=== PATIENT | female | born 1955 | race Caucasian/White ===

== ENCOUNTER 2018-07-12 10:42 | Emergency (ER) | payer OTHER ==
[~2018-07-12] VITALS: Ht 154.9 cm; Wt 68.0 kg
[~2018-07-12 10:42] MED LIST: ASPI81CH; CEPH500 PO; CYCL10 PO; Chantix0.5 MG PO; Coq-10100 MG; ERGO400 PO; HYDACE5 PO; HYDCHL12.5; LISI20 PO; LORA1 PO; METPRE4DP PO; NEOCOLOTSU OT; Naprosyn500 MG PO; Norco 5-325 Ta1 EACH PO; Prinivil10 MG PO; TIOT18; UBID100 PO; [UNRECOGNIZED DRUG - OTHER]
== END 2018-07-12 11:11 | disposition home or self-care (01) ==
LOC: ER 10:42
DX: R09.1 Pleurisy (principal); I10 Essential (primary) hypertension; J44.9 Chronic obstructive pulmonary disease, unspecified; E78.5 Hyperlipidemia, unspecified; Z87.891 Personal history of nicotine dependence; Z79.899 Other long term (current) drug therapy
CPT/HCPCS: 99283

== ENCOUNTER → 2019-06-22 | Outpatient (CLI) | payer OTHER | LOC: LAB SHORT 12:00 → LAB 12:00 → LAB FUT 05-23 14:35 | DX: R10.13 Epigastric pain (principal) | CPT/HCPCS: 87338 ==

== ENCOUNTER → 2019-09-03 | Outpatient (CLI) | payer OTHER ==
[2019-09-06 14:28] LABS: Stool Occult Bld Immuno 1 Negative (NEGATIVE)
== END ==
LOC: LAB SHORT 07:15 → LAB 07:15
PROVIDERS: Nurse Practitioner Family
DX: Z12.11 Encounter for screening for malignant neoplasm of colon (principal)
CPT/HCPCS: G0328

== ENCOUNTER → 2019-12-26 | Outpatient (CLI) | payer OTHER ==
[2019-12-28 15:09] LABS: HPV 16 Negative (Negative); HPV 18 Negative (Negative); HPV OTHER HR TYPES Negative (Negative)
== END | disposition home or self-care (01) ==
LOC: LAB SHORT 14:30 → LAB 14:30
PROVIDERS: Obstetrics & Gynecology
DX: Z01.419 Encounter for gynecological examination (general) (routine) without abnormal findings (principal)
CPT/HCPCS: 87624; G0123

== ENCOUNTER 2021-08-13 14:06 | Emergency (ER) | payer OTHER ==
[~2021-08-13] VITALS: Ht 154.9 cm; Wt 67.1 kg
== END 2021-08-13 14:45 | disposition home or self-care (01) ==
LOC: ER 14:06
DX: S01.01XA Laceration without foreign body of scalp, initial encounter (principal); Z23 Encounter for immunization; I10 Essential (primary) hypertension; J44.9 Chronic obstructive pulmonary disease, unspecified; E78.00 Pure hypercholesterolemia, unspecified; Z79.899 Other long term (current) drug therapy; Z87.891 Personal history of nicotine dependence; W22.8XXA Striking against or struck by other objects, initial encounter
CPT/HCPCS: 90471; 90714; 99283-25

== ENCOUNTER 2021-09-28 10:01 | Day surgery (SDC) | payer OTHER ==
[~2021-09-28] VITALS: Ht 154.9 cm; Wt 67.9 kg
== END 2021-09-28 13:05 | disposition home or self-care (01) ==
LOC: ORSCSDS 10:01
PROVIDERS: Student in an Organized Health Care Education/Training Program
PROC: 0DBK8ZX Excision of Ascending Colon, Via Natural or Artificial Opening Endoscopic, Diagnostic (ICD-10-PCS; principal; 2021-09-28 12:00)
PROC: 0DB78ZX Excision of Stomach, Pylorus, Via Natural or Artificial Opening Endoscopic, Diagnostic (ICD-10-PCS; principal; 2021-09-28 12:00)
PROC: 0DBH8ZX Excision of Cecum, Via Natural or Artificial Opening Endoscopic, Diagnostic (ICD-10-PCS; principal; 2021-09-28 12:00)
PROC: 0DB98ZX Excision of Duodenum, Via Natural or Artificial Opening Endoscopic, Diagnostic (ICD-10-PCS; principal; 2021-09-28 12:00)
PROC: 0DB48ZX Excision of Esophagogastric Junction, Via Natural or Artificial Opening Endoscopic, Diagnostic (ICD-10-PCS; principal; 2021-09-28 12:00)
DX: R10.13 Epigastric pain (principal); K57.32 Diverticulitis of large intestine without perforation or abscess without bleeding; K31.7 Polyp of stomach and duodenum; D12.2 Benign neoplasm of ascending colon; D12.0 Benign neoplasm of cecum; K44.9 Diaphragmatic hernia without obstruction or gangrene; K20.90 Esophagitis, unspecified without bleeding; K29.70 Gastritis, unspecified, without bleeding; I10 Essential (primary) hypertension; E78.5 Hyperlipidemia, unspecified; J44.9 Chronic obstructive pulmonary disease, unspecified; I25.10 Atherosclerotic heart disease of native coronary artery without angina pectoris; Z79.899 Other long term (current) drug therapy
CPT/HCPCS: 88305; 88342; J2704; J7120

== ENCOUNTER 2022-08-24 10:53 | Emergency (ER) | payer OTHER ==
[~2022-08-24] VITALS: Ht 157.5 cm; Wt 70.3 kg
[2022-08-24] MEDS ORDERED: HYDR1TAB94 PO (12:14)
== END 2022-08-24 12:17 | disposition home or self-care (01) ==
LOC: ER 10:53
DX: S93.602A Unspecified sprain of left foot, initial encounter (principal); W18.43XA Slipping, tripping and stumbling without falling due to stepping from one level to another, initial encounter; Z79.899 Other long term (current) drug therapy; I10 Essential (primary) hypertension; Z87.891 Personal history of nicotine dependence
CPT/HCPCS: 73630

== ENCOUNTER → 2022-08-26 | Outpatient (CLI) | payer OTHER ==
[~2022-08-26] MED LIST changes: +HYDR1TAB94 PO
[2022-08-26 19:54] LABS: Source, Urine Clean Catch
[2022-08-26 20:03] LABS: Appearance, Urine Clear (Clear); Bilirubin, Urine Neg (Neg); Blood, Urine 1+ (Neg); Color, Urine Yellow (P-Yellow); Glucose Qualitative, Urine Neg (Neg); Ketones, Urine Neg (Neg); Leukocyte Esterase, Urine Neg (Neg); Nitrite, Urine Neg (Neg); Protein, Urine Neg (Neg); Specific Gravity, Urine 1.025 (1.003-1.022); Urobilinogen, Urine NORM (Normal)
[2022-08-26 20:14] LABS: Bacteria Not Seen /hpf; Red Blood Cells, Urine 0-2 /hpf (0-2); Squamous Epithelial Cells Rare /hpf (Few); White Blood Cells, Urine 0-2 /hpf (0-5)
[2022-08-26 20:15] LABS: Uric Acid Crystals Few /hpf
== END | disposition home or self-care (01) ==
LOC: LAB 16:31 → LAB SHORT 16:31
PROVIDERS: Obstetrics & Gynecology
DX: R82.998 Other abnormal findings in urine (principal)
CPT/HCPCS: 81001

== ENCOUNTER 2022-12-20 06:16 | Day surgery (SDC) | payer OTHER ==
[2022-12-17 15:17] LABS: BASOPHILS ABSOLUTE AUTO 0.06 K/mm3 (0.00-0.23); BASOPHILS PERCENT AUTO 1 % (0-2); EOSINOPHILS ABSOLUTE AUTO 0.24 K/mm3 (0.00-0.68); EOSINOPHILS PERCENT AUTO 3 % (0-6); Hematocrit 42.8 % (33.0-51.0); Hemoglobin 14.4 g/dL (11.5-16.0); IMMATURE GRAN ABSOLUTE AUTO 0.06 K/mm3 (0.00-0.10); IMMATURE GRAN PERCENT AUTO 1 % (0-1); LYMPHOCYTES ABSOLUTE AUTO 2.17 K/mm3 (0.84-5.20); LYMPHOCYTES PERCENT AUTO 26 % (21-46); MONOCYTES ABSOLUTE AUTO 1.08 K/mm3 (0.16-1.47); MONOCYTES PERCENT AUTO 13 % (4-13); Mean Corpuscular HGB 33.2 pg (26.0-34.0); Mean Corpuscular HGB Conc 33.6 g/dL (31.5-36.5); Mean Corpuscular Volume 99 fL (80-100); Mean Platelet Volume 11.8 fL (9.1-12.4); NEUTROPHILS ABSOLUTE AUTO 4.61 K/mm3 (1.96-9.15); NEUTROPHILS PERCENT AUTO 56 % (41-73); Platelet Count 280 K/mm3 (150-400); Red Blood Cell Count 4.34 M/mm3 (3.80-5.20); White Blood Cell Count 8.22 K/mm3 (4.00-11.30)
[2022-12-17 16:15] LABS: Bun/Creatinine Ratio 19.8 (12.0-20.0); Calcium, Blood 9.4 mg/dL (8.5-10.1); Creatinine, Blood 0.76 mg/dL (0.40-1.00); Potassium, Blood 3.8 mmol/L (3.5-5.5)
[~2022-12-20] VITALS: Ht 157.5 cm; Wt 72.1 kg
[2022-12-20] MEDS ORDERED: ASPI325 PO (06:54)
--- NOTE | 2022-12-20 12:06 | NUR ---
PATIENT CAME BACK FROM PACU TODAY AT 1120. POD 0 LAP HYSTER PATIENT IS A&OX4. SHE WAS ABLE TO BE A SBA TO THE BATHROOM AND THEN BACK TO BED. SHE IS TOLERATING SMALL AMOUNTS OF PO INTAKE. PATIENT HAS 4 ABD LAP SITES WITH WOUND GLUE THAT ARE C/D/I. PATIENT HAS SMALL AMOUNT OF BLOOD ON HOA PAD. PATIENT RATES HER PAIN A 9/10 BUT HAS BEEN GIVEN PO TYLENOL AND OXY. PATIENT HAS SINCE STATED "MY PAIN SEEMS TO BE IMPROVING". PATIENT HAS VOIDED DARK YELLOW URINE WHEN IN THE BATHROOM. ATTENDS ARE IN PLACE. PATIENT IS LAYING IN BED ON THE PHONE WITH HER SON. CALL LIGHT IS WITHIN REACH.
[2022-12-20] MEDS ORDERED: ACET500 PO (12:45)
[2022-12-20] MEDS ORDERED: IBUP400 PO (12:46)
--- NOTE | 2022-12-20 16:32 | NUR ---
SHIFT SUMMARY: POD 0 LAP HYSTER PATIENT IS A&OX4. BP IS SLIGHTLY ELEVATED BUT OTHERWISE VS ARE WNL AND IS ON RA. PATIENTS PAIN IS MANAGED WITH PO OXY AT THIS TIME. HER ABD X4 LAP SITES WITH WOUND GLUE ARE C/D/I. HOA PAD HAS SCANT AMOUNT OF BLOOD ON IT. SHE IS TOLERATING PO INTAKE AND IS VOIDING. SHE IS A SBA WITHIN THE ROOM WITH MINIMAL ASSIST. CALLS APPROPRIATELY. PATIENT IS LAYING IN BED WITH CALL LIGHT IN REACH.
[2022-12-21 04:22] LABS: BASOPHILS ABSOLUTE AUTO 0.03 K/mm3 (0.00-0.23); BASOPHILS PERCENT AUTO 0 % (0-2); EOSINOPHILS ABSOLUTE AUTO 0.03 K/mm3 (0.00-0.68); EOSINOPHILS PERCENT AUTO 0 % (0-6); Hematocrit 38.3 % (33.0-51.0); Hemoglobin 13.2 g/dL (11.5-16.0); IMMATURE GRAN ABSOLUTE AUTO 0.07 K/mm3 (0.00-0.10); IMMATURE GRAN PERCENT AUTO 1 % (0-1); LYMPHOCYTES ABSOLUTE AUTO 2.22 K/mm3 (0.84-5.20); LYMPHOCYTES PERCENT AUTO 18 % (21-46); MONOCYTES ABSOLUTE AUTO 1.62 K/mm3 (0.16-1.47); MONOCYTES PERCENT AUTO 13 % (4-13); Mean Corpuscular HGB 33.2 pg (26.0-34.0); Mean Corpuscular HGB Conc 34.5 g/dL (31.5-36.5); Mean Corpuscular Volume 96 fL (80-100); Mean Platelet Volume 11.8 fL (9.1-12.4); NEUTROPHILS ABSOLUTE AUTO 8.17 K/mm3 (1.96-9.15); NEUTROPHILS PERCENT AUTO 67 % (41-73); Platelet Count 276 K/mm3 (150-400); RDW Standard Deviation 42.1 fL (35.1-46.3); Red Blood Cell Count 3.98 M/mm3 (3.80-5.20); White Blood Cell Count 12.14 K/mm3 (4.00-11.30)
--- NOTE | 2022-12-21 04:28 | NUR ---
SHIFT SUMMARY PT SLEPT WELL T/O NIGHT. REPORTS BURNING WITH URINATION, BUT VOIDING APPROPRIATELY. REPORTS MINIMAL PAIN TO LAP SITES X4 TO ABD. TOLERATED ORAL DILAUDID WITHOUT NAUSEA. TYLENOL/TORADOL PER ORDERS. SCANT VAGINAL BLEEDING. INDEP IN ROOM. EXPECTING TO DISCHARGE HOME TODAY. USES CALL LIGHT APPROPRIATELY.
--- NOTE | 2022-12-21 10:11 | NUR ---
DISCHARGE SUMMARY POD1 LAP HYSTER, A/OX4, VSS, TOLERATING PO, PAIN WELL MANAGED, ABD LAP SITES HAD NO DRAINAGE AND ARE COVERED WITH WOUND GLUE FROM THE OR. ABLE TO AMBULATE INDEPENDENTLY IN THE ROOM, VOIDING WELL. IV ACCESS REMOVED PRIOR TO DISCHARGE. DISCUSSED DISCHARGE INSTRUCTIONS WITH THE PATIENT INCLUDING HOME CARE, MEDICATIONS, FOLLOW UP APPOINTMENTS, S/SX TO LOOK OUT FOR, AND CONTACTING THE MD/NURSING DESK SHOULD QUESTIONS COME UP AFTER DISCHARGE. SHE HAD NO QUESTIONS AT THIS TIME. ESCORTED OUT VIA WC TO PRIVATE AUTO TO GO HOME.
== END 2022-12-21 09:37 | disposition home or self-care (01) ==
LOC: ORSCMMR 06:16 → ORD 07:30 → SURS 11:03 → ORSCMMR 12-21 09:37
PROVIDERS: Obstetrics & Gynecology
PROC: 0UT2FZZ Resection of Bilateral Ovaries, Via Natural or Artificial Opening With Percutaneous Endoscopic Assistance (ICD-10-PCS; principal; 2022-12-20 07:30)
PROC: 0UT9FZZ Resection of Uterus, Via Natural or Artificial Opening With Percutaneous Endoscopic Assistance (ICD-10-PCS; principal; 2022-12-20 07:30)
PROC: 8E0W4CZ Robotic Assisted Procedure of Trunk Region, Percutaneous Endoscopic Approach (ICD-10-PCS; principal; 2022-12-20 07:30)
PROC: 0UT7FZZ Resection of Bilateral Fallopian Tubes, Via Natural or Artificial Opening With Percutaneous Endoscopic Assistance (ICD-10-PCS; principal; 2022-12-20 07:30)
DX: D25.2 Subserosal leiomyoma of uterus (principal); N83.292 Other ovarian cyst, left side; N83.291 Other ovarian cyst, right side; N94.89 Other specified conditions associated with female genital organs and menstrual cycle; D27.9 Benign neoplasm of unspecified ovary; I10 Essential (primary) hypertension; I25.10 Atherosclerotic heart disease of native coronary artery without angina pectoris; E78.5 Hyperlipidemia, unspecified; J45.909 Unspecified asthma, uncomplicated; J44.9 Chronic obstructive pulmonary disease, unspecified; Z87.891 Personal history of nicotine dependence; K21.9 Gastro-esophageal reflux disease without esophagitis; Z79.899 Other long term (current) drug therapy; Z79.82 Long term (current) use of aspirin
CPT/HCPCS: 58571; S2900; 36415; 80048; 85025; 86850; 86900; 86901; 88307; 88342; 94760; A9270; J0690; J1100; J1885; J2250; J2405; J2704; J2765; J2795; J3010; J7120

== ENCOUNTER 2023-01-18 12:26 | Day surgery (SDC) | payer OTHER ==
[~2023-01-18] VITALS: Ht 154.9 cm; Wt 70.9 kg
[~2023-01-18 12:26] MED LIST changes: +ACET500 PO; +ASPI325 PO; +IBUP400 PO
[2023-01-18] MEDS ORDERED: LOSA25 (12:49)
[2023-01-18] MEDS ORDERED: Selenomax200 MCG (12:50)
[2023-01-18] MEDS ORDERED: CENTRUM SILVER1 EAC2 (12:50)
[2023-01-18] MEDS ORDERED: GINKGO60 MG (12:50)
[2023-01-18] MEDS ORDERED: Vitamin D1000 UNI1 (12:50)
[2023-01-18] MEDS ORDERED: Vitamin C100 M1 (12:50)
[2023-01-18] MEDS ORDERED: FISH OIL 1,2001 EAC7 (12:50)
[2023-01-18] MEDS ORDERED: ALBU90OI (12:51)
[2023-01-18] MEDS ORDERED: PROLIA60 MG/1 ML (12:58)
== END 2023-01-18 14:05 | disposition home or self-care (01) ==
LOC: ORSCSDS 12:26
PROVIDERS: Surgery
PROC: 0DJD8ZZ Inspection of Lower Intestinal Tract, Via Natural or Artificial Opening Endoscopic (ICD-10-PCS; principal; 2023-01-18 12:00)
DX: K63.89 Other specified diseases of intestine (principal); K57.50 Diverticulosis of both small and large intestine without perforation or abscess without bleeding; Z87.891 Personal history of nicotine dependence; Z79.899 Other long term (current) drug therapy
CPT/HCPCS: J0330; J0461; J2001; J2405; J2704; J7120; Q9968

== ENCOUNTER 2023-09-15 09:04 | Emergency (ER) | payer OTHER ==
[~2023-09-15] VITALS: Ht 154.9 cm; Wt 72.6 kg
[~2023-09-15 09:04] MED LIST changes: +ALBU90OI; +CENTRUM SILVER1 EAC2; +FISH OIL 1,2001 EAC7; +GINKGO60 MG; +LOSA25; +PROLIA60 MG/1 ML; +Selenomax200 MCG; +Vitamin C100 M1; +Vitamin D1000 UNI1
[2023-09-15] MEDS ORDERED: LISI20 PO (09:24)
[2023-09-15 09:49] LABS: Source, Urine Clean Catch
[2023-09-15 09:51] LABS: BASOPHILS ABSOLUTE AUTO 0.07 K/mm3 (0.00-0.23); BASOPHILS PERCENT AUTO 1 % (0-2); EOSINOPHILS ABSOLUTE AUTO 0.08 K/mm3 (0.00-0.68); EOSINOPHILS PERCENT AUTO 1 % (0-6); Hematocrit 42.8 % (33.0-51.0); Hemoglobin 14.2 g/dL (11.5-16.0); IMMATURE GRAN ABSOLUTE AUTO 0.16 K/mm3 (0.00-0.10); IMMATURE GRAN PERCENT AUTO 1 % (0-1); LYMPHOCYTES ABSOLUTE AUTO 2.15 K/mm3 (0.84-5.20); LYMPHOCYTES PERCENT AUTO 16 % (21-46); MONOCYTES ABSOLUTE AUTO 1.48 K/mm3 (0.16-1.47); MONOCYTES PERCENT AUTO 11 % (4-13); Mean Corpuscular HGB 33.8 pg (26.0-34.0); Mean Corpuscular HGB Conc 33.2 g/dL (31.5-36.5); Mean Corpuscular Volume 102 fL (80-100); Mean Platelet Volume 10.9 fL (9.1-12.4); NEUTROPHILS ABSOLUTE AUTO 9.15 K/mm3 (1.96-9.15); NEUTROPHILS PERCENT AUTO 70 % (41-73); Platelet Count 282 K/mm3 (150-400); RDW Coefficient Variation 12.4 % (11.7-14.2); RDW Standard Deviation 46.4 fL (35.1-46.3); White Blood Cell Count 13.09 K/mm3 (4.00-11.30)
[2023-09-15 09:52] LABS: Appearance, Urine Clear (Clear); Bilirubin, Urine Neg (Neg); Blood, Urine 1+ (Neg); Color, Urine Yellow (P-Yellow); Glucose Qualitative, Urine Neg (Neg); Ketones, Urine Neg (Neg); Leukocyte Esterase, Urine Neg (Neg); Nitrite, Urine Neg (Neg); Protein, Urine Neg (Neg); Specific Gravity, Urine 1.015 (1.003-1.022); Urobilinogen, Urine NORM (Normal)
[2023-09-15 10:00] LABS: Bacteria Rare /hpf; Squamous Epithelial Cells Few /hpf (Few); White Blood Cells, Urine 0-2 /hpf (0-5)
[2023-09-15 10:17] LABS: Albumin, Blood 3.6 g/dL (3.4-5.0); Albumin/Globulin Ratio 0.9 (0.8-1.8); Bilirubin, Total 0.7 mg/dL (0.1-1.0); Bun/Creatinine Ratio 12.9 (12.0-20.0); Calcium, Blood 9.4 mg/dL (8.5-10.1); Creatinine, Blood 0.7 mg/dL (0.40-1.00); Potassium, Blood 4.4 mmol/L (3.5-5.5); Total Protein, Blood 7.6 g/dL (6.4-8.2)
[2023-09-15 11:30] VITALS: BP 148/87
[2023-09-15] MEDS ORDERED: ACET500 PO (12:06)
[2023-09-15] MEDS ORDERED: OXYC5 PO (12:06)
[2023-09-15] MEDS ORDERED: AMOCLA875 PO (12:06)
== END 2023-09-15 12:18 | disposition home or self-care (01) ==
LOC: ER 09:04
PROVIDERS: Emergency Medicine
DX: K57.32 Diverticulitis of large intestine without perforation or abscess without bleeding (principal); Z79.899 Other long term (current) drug therapy; I10 Essential (primary) hypertension; E78.00 Pure hypercholesterolemia, unspecified; J44.9 Chronic obstructive pulmonary disease, unspecified; Z87.891 Personal history of nicotine dependence
CPT/HCPCS: 74177; 80053; 81001; 83690; 85025; 96374; 99284-25; A9270; J2270; Q9967

== ENCOUNTER → 2025-05-23 | Outpatient (CLI) | payer OTHER ==
[~2025-05-23] MED LIST changes: +AMOCLA875 PO; +OXYC5 PO
== END ==
LOC: LAB SHORT 14:39 → LAB 14:39
DX: R10.9 Unspecified abdominal pain (principal)
CPT/HCPCS: 87077; 87086; 87186